=== PATIENT | male | born 1960 | race Caucasian/White ===

== ENCOUNTER 2019-05-21 16:03 | Emergency (ER) | payer MEDICAID, OTHER ==
[~2019-05-21] VITALS: Ht 172.7 cm; Wt 81.6 kg
[2019-05-21 16:18] VITALS: BP_SYST 116
--- NOTE | 2019-05-21 16:22 | NUR ---
ambulated to bed 5
--- NOTE | 2019-05-21 16:30 | NUR ---
Pt brought by partner, A&Ox4, pt presents to ER with back pain, states he may have a kidney stone, skin pink and warm, cap refill <3, VSS.
--- NOTE | 2019-05-21 16:35 | NUR ---
Dr Flores at bedside examining patient
--- NOTE | 2019-05-21 16:36 | NUR ---
No N/V noted, afebrile,ambulatory, skin pink and warm.
[2019-05-21] MEDS ORDERED: MORPHINE SULFATE 10 MG/ML VIAL IM ONE (16:45)
[2019-05-21] MEDS ORDERED: DIPHENHYDRAMINE INJ 50 MG/ML VIAL IM ONE (16:45)
--- NOTE | 2019-05-21 17:14 | NUR ---
Patient given written and verbal discharge instructions and verbalizes understanding. ER MD discussed with patient the results and treatment provided. Patient in stable condition. ID arm band removed. Rx of meloxicam, given. Patient educated on pain management and to follow up with PMD. Pain Scale 0/10. Opportunity for questions provided and answered. Medication side effect fact sheet provided.
[2019-05-21 17:17] VITALS: BP_SYST 137
== END 2019-05-21 17:14 | disposition home or self-care (01) ==
LOC: SED 16:03
DX: S39.012A Strain of muscle, fascia and tendon of lower back, initial encounter (principal); F17.200 Nicotine dependence, unspecified, uncomplicated; F43.10 Post-traumatic stress disorder, unspecified; F41.9 Anxiety disorder, unspecified; Z88.6 Allergy status to analgesic agent; Z71.6 Tobacco abuse counseling; X50.1XXA Overexertion from prolonged static or awkward postures, initial encounter; Y93.89 Activity, other specified; Y92.89 Other specified places as the place of occurrence of the external cause; Y99.8 Other external cause status
CPT/HCPCS: 81002; 96372; 99283; J1200; J2270